=== PATIENT | male | born 1995 | race Caucasian/White ===

== ENCOUNTER 2017-09-05 05:55 | Emergency (ER) | payer MEDICAID ==
[~2017-09-05] VITALS: Ht 175.3 cm; Wt 77.0 kg
[~2017-09-05 05:55] MED LIST: AMOX-422 PO; BISA10SU60 RC; DIPH25CA83 PO; FAMO-128 PO; MAGN296S50 PO; PHEN-873 PO; PRED10TA PO
[2017-09-05] MEDS ORDERED: acetaminophen 325mg tablet PO ONE (06:35)
[2017-09-05] MEDS ORDERED: ibuprofen tablet 400 MG TABLET PO ONE (06:35)
[2017-09-05 06:58] LABS: CLARITY,URINE Clear (Clear); COLOR,URINE Yellow (Yellow); GLUCOSE, URINE Negative (Neg); KETONES,URINE 40 mg/dl (Neg); LEUKOCYTE ESTERASE ,URINE Negative (Neg); NITRITES, URINE Negative (Neg); OCCULT BLOOD,URINE Negative (Neg); PROTEIN,URINE Negative (Neg)
[2017-09-05 06:59] LABS: UA COLLECTION TYPE VOIDED
[2017-09-05] MEDS ORDERED: MELO-100 PO (07:04)
[2017-09-05 07:19] VITALS: BP 129/60
== END 2017-09-05 07:23 | disposition home or self-care (01) ==
LOC: ER 05:56
DX: G89.29 Other chronic pain (principal); M54.5 Low back pain; F12.10 Cannabis abuse, uncomplicated; Z88.2 Allergy status to sulfonamides; Z88.8 Allergy status to other drugs, medicaments and biological substances; Z79.899 Other long term (current) drug therapy
CPT/HCPCS: 81003; 99283

== ENCOUNTER 2018-02-21 16:43 | Emergency (ER) | payer MEDICAID ==
[~2018-02-21] VITALS: Ht 172.7 cm; Wt 65.0 kg
[~2018-02-21 16:43] MED LIST changes: +MELO-100 PO
[2018-02-21 16:55] VITALS: BP 141/67
== END 2018-02-21 22:54 | disposition left against medical advice (07) ==
LOC: ER 16:43
DX: R21 Rash and other nonspecific skin eruption (principal); Z53.21 Procedure and treatment not carried out due to patient leaving prior to being seen by health care provider

== ENCOUNTER 2020-02-13 16:53 | Emergency (ER) | payer SELFPAY ==
[~2020-02-13] VITALS: Ht 175.3 cm; Wt 79.5 kg
[~2020-02-13 16:53] MED LIST changes: -MAGN296S50 PO; +MAGN296S70 PO; +PHEN-786 PO; -PHEN-873 PO
[2020-02-13 17:08] VITALS: BP 145/83
[2020-02-13 17:54] LABS: CLARITY,URINE CLEAR (Clear); COLOR,URINE YELLOW (Yellow); GLUCOSE, URINE NEGATIVE (Neg); KETONES,URINE NEGATIVE (Neg); LEUKOCYTE ESTERASE ,URINE NEGATIVE (Neg); NITRITES, URINE NEGATIVE (Neg); OCCULT BLOOD,URINE NEGATIVE (Neg); PH,URINE 6.5 (4.8-8.0); PROTEIN,URINE NEGATIVE (Neg); UA COLLECTION TYPE CLN CATCH MIDSTREAM; UROBILINOGEN,URINE 0.2 E.U/dL (0.2-1.0)
[2020-02-13] MEDS ORDERED: NITR100C6 PO (19:12)
[2020-02-13] MEDS ORDERED: ONDA4TAB6 PO (19:12)
== END 2020-02-13 19:24 | disposition home or self-care (01) ==
LOC: ER 16:53
DX: N34.2 Other urethritis (principal); R30.0 Dysuria; R35.0 Frequency of micturition; R30.9 Painful micturition, unspecified; R10.819 Abdominal tenderness, unspecified site; G89.29 Other chronic pain; F41.9 Anxiety disorder, unspecified; F17.200 Nicotine dependence, unspecified, uncomplicated; F12.90 Cannabis use, unspecified, uncomplicated; Z87.440 Personal history of urinary (tract) infections; Z88.2 Allergy status to sulfonamides; Z88.8 Allergy status to other drugs, medicaments and biological substances; Z79.2 Long term (current) use of antibiotics; Z79.899 Other long term (current) drug therapy
CPT/HCPCS: 81003; 99283

== ENCOUNTER 2020-08-12 14:57 | Emergency (ER) | payer SELFPAY ==
[~2020-08-12 14:57] MED LIST changes: +NITR100C6 PO; +ONDA4TAB6 PO
== END 2020-08-12 16:09 | disposition left against medical advice (07) ==
LOC: ER 14:57
DX: R52 Pain, unspecified (principal); Z53.21 Procedure and treatment not carried out due to patient leaving prior to being seen by health care provider

== ENCOUNTER 2020-09-14 00:17 | Emergency (ER) | payer MEDICAID ==
[~2020-09-14] VITALS: Ht 175.3 cm; Wt 81.8 kg
[2020-09-14] MEDS ORDERED: bacitracin 15gm ointment TP ONE (02:00)
[2020-09-14] MEDS ORDERED: LIDOcaine 1% W/epiNEPHrine 1:200,000 10ml vial IJ ONE (02:00)
[2020-09-14] MEDS ORDERED: TETanus/Pertussis (Acell)/Diphther VAC/PF (Tdap-Adult) 0.5ml syringe IMVAC ONE (02:00)
--- NOTE | 2020-09-14 02:22 | NUR ---
dr. worthington at bedside to numb finger lac.
[2020-09-14] MEDS ORDERED: CEPH-572 PO (03:42)
[2020-09-14 04:11] VITALS: BP 110/60
== END 2020-09-14 04:14 | disposition home or self-care (01) ==
LOC: ER 00:18
DX: S61.210A Laceration without foreign body of right index finger without damage to nail, initial encounter (principal); S61.212A Laceration without foreign body of right middle finger without damage to nail, initial encounter; S61.214A Laceration without foreign body of right ring finger without damage to nail, initial encounter; G89.29 Other chronic pain; F17.200 Nicotine dependence, unspecified, uncomplicated; F12.90 Cannabis use, unspecified, uncomplicated; Z86.19 Personal history of other infectious and parasitic diseases; Z87.440 Personal history of urinary (tract) infections; Z88.0 Allergy status to penicillin; Z88.8 Allergy status to other drugs, medicaments and biological substances; Z79.2 Long term (current) use of antibiotics; Z79.899 Other long term (current) drug therapy; W25.XXXA Contact with sharp glass, initial encounter; Y93.H3 Activity, building and construction; Y92.89 Other specified places as the place of occurrence of the external cause; Y99.8 Other external cause status
CPT/HCPCS: 12001; 13131; 73140; 90471; 90715; 99285

== ENCOUNTER 2020-12-17 20:19 | Emergency (ER) | payer MEDICAID ==
[~2020-12-17] VITALS: Ht 175.3 cm; Wt 89.1 kg
[2020-12-17 20:21] VITALS: BP 137/82
--- NOTE | 2020-12-17 21:49 | NUR ---
Pt. reports intermittent vauge generalized weakness with cold sweats over the past 5 days, pt. reports symptoms are not currently present.
[2020-12-17 23:20] LABS: BASOPHILS # (AUTO) 0.1 X10'3 (0-0.2); BASOPHILS % (AUTO) 0.7 % (0-1); EOSINOPHILS # (AUTO) 0.1 X10'3 (0-0.9); EOSINOPHILS % (AUTO) 1.1 % (0-6); HEMATOCRIT 46.8 % (42.0-52.0); HEMOGLOBIN 15.7 g/dl (14.0-17.9); LYMPHOCYTES # (AUTO) 2.5 X10'3 (1.1-4.8); LYMPHOCYTES % (AUTO) 30.5 % (21-51); MEAN CORPUSCULAR HEMOGLOBIN 31.3 PG (27.0-31.0); MEAN CORPUSCULAR HGB CONC 33.6 g/dL (33.0-36.5); MEAN CORPUSCULAR VOLUME 93.1 FL (78-98); MEAN PLATELET VOLUME 7.8 FL (7.4-10.4); MONOCYTES # (AUTO) 0.9 X10'3 (0-0.9); MONOCYTES % (AUTO) 10.4 % (2-12); NEUTROPHILS # (AUTO) 4.7 X10'3 (1.8-7.7); NEUTROPHILS % (AUTO) 57.3 % (42-75); PLATELET COUNT 296 X10'3 (140-440); RED BLOOD COUNT 5.02 X10'6 (4.70-6.10); WHITE BLOOD COUNT 8.2 X10'3 (4.5-11.0)
[2020-12-17 23:27] LABS: ALANINE AMINOTRANSFERASE 21 U/L (12-78); ALBUMIN 4.2 G/DL (3.4-5.0); ALBUMIN/GLOBULIN RATIO 1.1 (1.1-1.5); ALKALINE PHOSPHATASE 87 IU/L (46-116); ANION GAP 7 (8-16); ASPARTATE AMINO TRANSFERASE 17 U/L (10-37); BILIRUBIN,TOTAL 0.3 MG/DL (0.1-1.0); BLOOD UREA NITROGEN 24 MG/DL (7-18); BUN/CREATININE RATIO 19.2 (5.4-32.0); CALCIUM 9.2 MG/DL (8.5-10.1); CHLORIDE 105 MMOL/L (99-107); CREATININE 1.25 MG/DL (0.60-1.10); GLUCOSE 99 MG/DL (70-104); POTASSIUM 4.4 MMOL/L (3.5-5.1); SODIUM 143 MMOL/L (135-145); TOTAL CARBON DIOXIDE 30.8 MMOL/L (24-32); TOTAL PROTEIN 7.9 G/DL (6.4-8.2); eGFR 71 ML/MIN
== END 2020-12-18 00:29 | disposition home or self-care (01) ==
LOC: ER 20:20
DX: R53.83 Other fatigue (principal); Z20.822 Contact with and (suspected) exposure to COVID-19; R42 Dizziness and giddiness; R53.1 Weakness; R11.0 Nausea; G89.29 Other chronic pain; F12.90 Cannabis use, unspecified, uncomplicated; F41.9 Anxiety disorder, unspecified; Z88.2 Allergy status to sulfonamides; Z88.8 Allergy status to other drugs, medicaments and biological substances
CPT/HCPCS: 36415; 80053; 85025; 87635; 93005; 99284; C9803